=== PATIENT | male | born 1985 | race Caucasian/White ===

== ENCOUNTER 2017-03-12 13:03 | Emergency (ER) | payer OTHER ==
[2017-03-12 13:41] VITALS: BP 128/81
[2017-03-12] MEDS ORDERED: Proparacaine 0.5% Ophth Soln 15 ML Bottle EYERT ONE (14:02)
[2017-03-12] MEDS ORDERED: Proparacaine 0.5% Ophth Soln 15 ML Bottle ONE (14:07)
--- NOTE | 2017-03-12 14:27 | EDM.PDOC ---
ED HPI GENERAL MEDICAL PROBLEM - General Chief Complaint: Eye Problems Stated Complaint: CHEMICAL BURN, RIGHT EYE Time Seen by Provider: 03/12/17 14:05 Source of Information: Reports: Patient History Limitations: Reports: No Limitations - History of Present Illness INITIAL COMMENTS - FREE TEXT/NARRATIVE: 32-year-old male presents for evaluation and treatment of right eye irritation. Reports that he was at work last night. States that he opened a container of powdered dish detergent. Feels that he may have gotten some discharge in his eye and may have a chemical burn. He is also concerned that he may have inhaled some of the detergent as he felt slightly short of breath afterwards. This occurred around 1800 last night. He states that he rinsed the eye thoroughly. Currently complaining of redness and swelling to the right lower lid. No vision changes or crusting to the right eye. He does not wear glasses or contacts. No current shortness of breath or difficulty breathing currently. Right Eye Pain Score (Numeric/FACES): 3 - Related Data Allergies Allergy/AdvReac Type Severity Reaction Status Date / Time No Known Allergies Allergy Verified 03/12/17 13:29 Home Meds: Home Meds Methylphenidate [Ritalin] 5 mg PO DAILY 09/16/16 [History] buPROPion [buPROPion XL] 75 mg PO BID 09/16/16 [History] Cephalexin 500 mg PO BID #14 tablet 03/12/17 [Rx] Past Medical History - Past Health History Medical/Surgical History: Denies Medical/Surgical History Psychiatric History: Reports: Anxiety, Depression, Mood Swings Social & Family History - Tobacco Use Smoking Status *Q: Never Smoker Years of Tobacco use: 10 Packs/Tins Daily: 0.2 Second Hand Smoke Exposure: No - Caffeine Use Caffeine Use: Reports: Coffee - Recreational Drug Use Recreational Drug Use: No ED ROS GENERAL - Review of Systems Review Of Systems: See Below Constitutional: Denies: Fever, Chills HEENT: Reports: Eye Pain (right). Denies: Eye Discharge Respiratory: Denies: Shortness of Breath, Cough ED EXAM GENERAL W FULL EYE - Physical Exam Exam: See Below Exam Limited By: No Limitations General Appearance: Alert, WD/WN, No Apparent Distress Eyelids: Right: Erythema (approximately 0.5cm area of erythema with surrounding swelling to the right lower lid), Lid Everted for Exam Conjunctiva & Sclera: Bilateral: Normal Appearance Cornea Exam: Right: Normal Appearance, Examined with Flourescein Extraocular Movements: Bilateral: Intact Pupils: Normal Accommodation Pupillary Reaction: Bilateral: Brisk Anterior Chamber: Bilateral: Normal Appearance Ears: Normal External Exam Nose: Normal Inspection Throat/Mouth: Normal Inspection, Normal Lips, Normal Voice, No Airway Compromise Respiratory/Chest: No Respiratory Distress, Lungs Clear, Normal Breath Sounds Cardiovascular: Normal Peripheral Pulses, Regular Rate, Rhythm, No Murmur Neurological: Alert, Oriented, Normal Cognition Psychiatric: Normal Affect, Normal Mood Skin Exam: Warm, Dry, Normal Color Course - Vital Signs Last Recorded V/S: Last Vital Signs Temp 36.7 C 03/12/17 13:29 Pulse 70 03/12/17 13:29 Resp 12 03/12/17 13:29 BP 128/81 03/12/17 13:29 Pulse Ox 98 03/12/17 13:29 - Orders/Labs/Meds Meds: Medications Discontinued Medications Generic Name Dose Route Start Last Admin Trade Name Saleem PRN Reason Stop Dose Admin Proparacaine HCl 2 ml 03/12/17 14:02 03/12/17 14:19 Proparacaine 0.5% Ophth Soln EYERT 03/12/17 14:03 2 drop ONETIME ONE Administration Proparacaine HCl Confirm 03/12/17 14:07 03/12/17 14:20 Proparacaine 0.5% Ophth Soln Administered 03/12/17 14:08 Not Given Dose 15 ml .ROUTE .STK-MED ONE - Re-Assessments/Exams Free Text/Narrative Re-Assessment/Exam: 03/12/17 14:22 I was examined utilizing proparacaine and fluorescein. Patient tolerated the procedure well. No foreign material found. No corneal abrasions. Will start him on some antibiotics for an early preseptal cellulitis. Discharge instructions as documented. Departure - Departure Time of Disposition: 14:31 Disposition: Home, Self-Care 01 Condition: good Clinical Impression: Preseptal cellulitis of right lower eyelid - Discharge Information Prescriptions: Cephalexin 500 mg PO BID #14 tablet Instructions: Preseptal Cellulitis, Adult Referrals: Lona Tate DO [Primary Care Provider] - Forms: ED Department Discharge Additional Instructions: Cephalexin one tablet twice a day for 7 days. This has been escribed to the clinic pharmacy. Cold compress to the eye as needed. [id number] ibuprofen or Tylenol as needed for pain relief. Followup with family medicine if not better in 7 days. 2 return to BX her symptoms change or worsen.
== END 2017-03-12 14:55 | disposition home or self-care (01) ==
LOC: JD.ED 13:03
DX: L03.213 Periorbital cellulitis (principal); F41.8 Other specified anxiety disorders; Z79.899 Other long term (current) drug therapy
CPT/HCPCS: 65222; 99283; 99283-25

== ENCOUNTER 2021-04-25 19:08 | Observation (INO) | payer OTHER ==
--- NOTE | 2021-04-25 19:13 | EDM.PDOC ---
ED HPI GENERAL MEDICAL PROBLEM - General Chief Complaint: General Stated Complaint: [facility] Time Seen by Provider: 04/25/21 19:12 - History of Present Illness INITIAL COMMENTS - FREE TEXT/NARRATIVE: 36-year-old male presents the emergency room with essentially heat exhaustion. The patient walked 20 miles today after walking 12 miles last night today he had 2 L of fluid with him and he was unable to find more fluid along the way. He was becoming very lightheaded and very weak. He called for assistance. EMS picked him up he received 2 L of NS in route had 1/3 L hanging when he got here about 300 cc of that when I stopped it and changed it to LR. The patient feels as though he might be able to void and overall he feels much better since lightheadedness is gone. - Related Data Allergies Allergy/AdvReac Type Severity Reaction Status Date / Time No Known Allergies Allergy Verified 04/25/21 19:14 Home Meds: Home Meds buPROPion [buPROPion XL] 75 mg PO BID 09/16/16 [History] Past Medical History - Past Health History Medical/Surgical History: Denies Medical/Surgical History Psychiatric History: Reports: Anxiety, Depression, Mood Swings Social & Family History - Caffeine Use Caffeine Use: Reports: Coffee ED ROS GENERAL - Review of Systems Review Of Systems: See Below Constitutional: Reports: Malaise, Weakness. Denies: Fever, Chills HEENT: Reports: No Symptoms Respiratory: Reports: No Symptoms Cardiovascular: Reports: Lightheadedness. Denies: No Symptoms, Chest Pain, Claudication, Edema GI/Abdominal: Reports: No Symptoms : Reports: No Symptoms Musculoskeletal: Reports: Muscle Pain, Other (Cramps) Skin: Reports: No Symptoms Neurological: Reports: No Symptoms Psychiatric: Reports: No Symptoms ED EXAM, GENERAL - Physical Exam Exam: See Below Exam Limited By: No Limitations General Appearance: Alert, WD/WN, No Apparent Distress Ears: Normal External Exam, Normal Canal, Hearing Grossly Normal, Normal TMs Ear Exam: Bilateral Ear: Auricle Normal, Canal Normal, TM normal Nose: Normal Inspection, Normal Mucosa, No Blood Throat/Mouth: Normal Inspection, Normal Lips, Normal Teeth, Normal Gums, Normal Oropharynx, Normal Voice, No Airway Compromise Head: Atraumatic, Normocephalic Neck: Normal Inspection, Supple, Non-Tender, Full Range of Motion Respiratory/Chest: No Respiratory Distress, Lungs Clear, Normal Breath Sounds, No Accessory Muscle Use, Chest Non-Tender Cardiovascular: Normal Peripheral Pulses, Regular Rate, Rhythm, No Edema, No Gallop, No JVD, No Murmur, No Rub GI/Abdominal: Normal Bowel Sounds, Soft, Non-Tender, No Organomegaly, No Distention, No Abnormal Bruit, No Mass (Male) Exam: No Hernia, Normal Inspection, Normal Prostate, Circumcised Rectal (Males) Exam: Normal Exam, Normal Rectal Tone, Prostate Normal Back Exam: Normal Inspection, Full Range of Motion, NT Extremities: Normal Inspection, Normal Range of Motion, Non-Tender, Normal Capillary Refill, No Pedal Edema Neurological: Alert, Oriented, CN II-XII Intact, Normal Cognition, Normal Gait, Normal Reflexes, No Motor/Sensory Deficits Psychiatric: Normal Affect, Normal Mood Skin Exam: Warm, Dry, Intact, Normal Color, No Rash Lymphatic: No Adenopathy #1 Interpretation EKG Date: 04/25/21 Rhythm: NSR [place]: Normal P-Wave: Present QRS: Normal ST-T: Normal QT: Normal Comparison: NA - No Prior EKG EKG Interpretation Comments: Normal Course - Vital Signs Last Recorded V/S: Last Vital Signs Temp 36.4 C 04/25/21 19:11 Pulse 78 04/25/21 19:11 Resp 21 H 04/25/21 19:11 BP 150/86 H 04/25/21 19:11 Pulse Ox 97 04/25/21 19:11 - Orders/Labs/Meds Orders: Active Orders 24 hr Category Date Time Status EKG Documentation Completion [RC] ASDIRECTED Care 04/25/21 19:21 Active MYOGLOBIN, URINE Stat Lab 04/25/21 21:54 Ordered UA W/MICROSCOPIC [URIN] Stat Lab 04/25/21 21:35 Results Lactated Ringers [Ringers, Lactated] 1,000 ml Med 04/25/21 20:00 Active IV ASDIRECTED EKG 12 Lead [EK] Stat Ther 04/25/21 19:21 Ordered Medication Orders Lactated Ringer's (Ringers, Lactated) 1,000 mls @ 150 mls/hr IV ASDIRECTED JOELLE Labs: Laboratory Tests 06/29/21 06/29/21 06/29/21 Range/Units 19:15 19:15 21:01 WBC 12.20 H (4.23-9.07) K/mm3 RBC 5.12 (4.63-6.08) M/mm3 Hgb 15.9 (13.7-17.5) gm/dl Hct 46.2 (40.1-51.0) % MCV 90.2 (79.0-92.2) fl MCH 31.1 (25.7-32.2) pg MCHC 34.4 (32.2-35.5) g/dl RDW Std Deviation 43.9 (35.1-43.9) fL Plt Count 221 (163-337) K/mm3 MPV 11.9 (9.4-12.3) fl Neut % (Auto) 87.8 H (34.0-67.9) % Lymph % (Auto) 6.7 L (21.8-53.1) % [place] % (Auto) 5.2 L (5.3-12.2) % Eos % (Auto) 0.1 L (0.8-7.0) Baso % (Auto) 0.2 (0.1-1.2) % Neut # (Auto) 10.72 H (1.78-5.38) K/mm3 Lymph # (Auto) 0.82 L (1.32-3.57) K/mm3 [place] # (Auto) 0.63 (0.30-0.82) K/mm3 Eos # (Auto) 0.01 L (0.04-0.54) K/mm3 Baso # (Auto) 0.02 (0.01-0.08) K/mm3 Manual Slide Review Abnormal smear Sodium 152 H 145 (136-145) mEq/L Potassium 4.8 4.3 (3.5-5.1) mEq/L Chloride 113 H 109 H (98-107) mEq/L Carbon Dioxide 20 L 23 (21-32) mEq/L Anion Gap 23.8 H 17.3 H (5-15) BUN 36 H 33 H (7-18) mg/dL Creatinine 2.9 H 2.3 H (0.7-1.3) mg/dL Est Cr Clr Drug Dosing 33.74 42.54 mL/min Estimated GFR (MDRD) 25 32 (>60) mL/min BUN/Creatinine Ratio 12.4 L 14.3 (14-18) Glucose 103 H 136 H (70-99) mg/dL Calcium 9.8 9.2 (8.5-10.1) mg/dL Magnesium 2.4 (1.8-2.4) mg/dL Total Bilirubin 1.2 H (0.2-1.0) mg/dL AST 27 (15-37) U/L ALT 63 (16-63) U/L Alkaline Phosphatase 72 (46-116) U/L C-Reactive Protein 2.4 H* (<1.0) mg/dL Total Protein 8.4 H (6.4-8.2) g/dl Albumin 5.0 (3.4-5.0) g/dl Globulin 3.4 gm/dL Albumin/Globulin Ratio 1.5 (1-2) Urine Color (Yellow) Urine Appearance (Clear) Urine pH (5.0-8.0) Ur Specific [place] (1.005-1.030) Urine Protein (Negative) Urine Glucose (UA) (Negative) Urine Ketones (Negative) Urine Occult Blood (Negative) Urine Nitrite (Negative) Urine Bilirubin (Negative) Urine Urobilinogen (0.2-1.0) Ur Leukocyte Esterase (Negative) 04/25/21 Range/Units 21:35 WBC (4.23-9.07) K/mm3 RBC (4.63-6.08) M/mm3 Hgb (13.7-17.5) gm/dl Hct (40.1-51.0) % MCV (79.0-92.2) fl MCH (25.7-32.2) pg MCHC (32.2-35.5) g/dl RDW Std Deviation (35.1-43.9) fL Plt Count (163-337) K/mm3 MPV (9.4-12.3) fl Neut % (Auto) (34.0-67.9) % Lymph % (Auto) (21.8-53.1) % [place] % (Auto) (5.3-12.2) % Eos % (Auto) (0.8-7.0) Baso % (Auto) (0.1-1.2) % Neut # (Auto) (1.78-5.38) K/mm3 Lymph # (Auto) (1.32-3.57) K/mm3 [place] # (Auto) (0.30-0.82) K/mm3 Eos # (Auto) (0.04-0.54) K/mm3 Baso # (Auto) (0.01-0.08) K/mm3 Manual Slide Review Sodium (136-145) mEq/L Potassium (3.5-5.1) mEq/L Chloride (98-107) mEq/L Carbon Dioxide (21-32) mEq/L Anion Gap (5-15) BUN (7-18) mg/dL Creatinine (0.7-1.3) mg/dL Est Cr Clr Drug Dosing mL/min Estimated GFR (MDRD) (>60) mL/min BUN/Creatinine Ratio (14-18) Glucose (70-99) mg/dL Calcium (8.5-10.1) mg/dL Magnesium (1.8-2.4) mg/dL Total Bilirubin (0.2-1.0) mg/dL AST (15-37) U/L ALT (16-63) U/L Alkaline Phosphatase (46-116) U/L C-Reactive Protein (<1.0) mg/dL Total Protein (6.4-8.2) g/dl Albumin (3.4-5.0) g/dl Globulin gm/dL Albumin/Globulin Ratio (1-2) Urine Color Yellow (Yellow) Urine Appearance Slt cloudy H (Clear) Urine pH 6.0 (5.0-8.0) Ur Specific [place] > or = 1.030 (1.005-1.030) Urine Protein 1+ H (Negative) Urine Glucose (UA) Negative (Negative) Urine Ketones 1+ H (Negative) Urine Occult Blood Negative (Negative) Urine Nitrite Negative (Negative) Urine Bilirubin 1+ H (Negative) Urine Urobilinogen 0.2 (0.2-1.0) Ur Leukocyte Esterase Negative (Negative) Meds: Medications Generic Name Dose Route Start Last Admin Trade Name Freq PRN Reason Stop Dose Admin Lactated Ringer's 1,000 mls @ 150 mls/hr 04/25/21 20:00 Ringers, Lactated IV ASDIRECTED JOELLE Discontinued Medications Generic Name Dose Route Start Last Admin Trade Name Freq PRN Reason Stop Dose Admin Lactated Ringer's 1,000 mls @ 999 mls/hr 04/25/21 19:23 04/25/21 19:40 Ringers, Lactated IV 04/25/21 20:23 999 mls/hr ONETIME ONE Administration - Re-Assessments/Exams Free Text/Narrative Re-Assessment/Exam: 04/25/21 19:57 She has received 2 L of NS and is working on his third he is got out 300 cc in this bag and will change his over to LR. Labs reviewed electrolytes are elevated as is his anion gap and BUN will continue fluid rehydration. Patient thinks he could probably give us a urine specimen at this point. 04/25/21 21:58 Labs are improving but we still have a long way to go. Case reviewed with Dr. Beckham patient will be placed in observation. Departure - Departure Time of Disposition: 21:59 Disposition: Refer to Observation Clinical Impression: Heat exhaustion, Severe dehydration - Discharge Information Referrals: Dian Chavira MD [Primary Care Provider] - Forms: ED Department Discharge Sepsis Event Note (ED) - Focused Exam Vital Signs: Vital Signs Temp Pulse Resp BP Pulse Ox 04/25/21 19:11 36.4 C 78 21 H 150/86 H 97 - My Orders Last 24 Hours: My Active Orders 04/25/21 19:21 EKG Documentation Completion [RC] ASDIRECTED EKG 12 Lead [EK] Stat 04/25/21 20:00 Lactated Ringers [Ringers, Lactated] 1,000 ml IV ASDIRECTED 04/25/21 21:35 UA W/MICROSCOPIC [URIN] Stat 04/25/21 21:54 MYOGLOBIN, URINE Stat - Assessment/Plan Last 24 Hours: My Active Orders 04/25/21 19:21 EKG Documentation Completion [RC] ASDIRECTED EKG 12 Lead [EK] Stat 04/25/21 20:00 Lactated Ringers [Ringers, Lactated] 1,000 ml IV ASDIRECTED 04/25/21 21:35 UA W/MICROSCOPIC [URIN] Stat 04/25/21 21:54 MYOGLOBIN, URINE Stat
[2021-04-25] MEDS ORDERED: Lactated Ringers 1,000 ML IV ONE (19:23)
[2021-04-25] MEDS ORDERED: Melatonin 3 MG Tab PO ONE (22:22)
[2021-04-25] MEDS ORDERED: Gabapentin 600 MG Tab PO ONE (22:45)
[2021-04-25] MEDS: Lactated Ringers 1,000 ML IV SCH (22:51)
[2021-04-26] MEDS: Lactated Ringers 1,000 ML IV SCH (05:43)
--- NOTE | 2021-04-26 06:41 | PCM.HP.2 ---
H&P History of Present Illness - General Date of Service: 04/26/21 Admit Problem/Dx: Admission Diagnosis/Problem Admission Diagnosis/Problem Dehydration Source of Information: Patient History Limitations: Reports: No Limitations - History of Present Illness Initial Comments - Free Text/Narative: The patient is an otherwise healthy 36-year-old gentleman who had been admitted to acute hospitalization due to severe dehydration and acute renal insufficiency. The patient reportedly had been hiking and did not have sufficient water and became dizzy disoriented lightheaded and had presented to the emergency department with nausea and vomiting as well. The patient has denied any fever or chills. The patient is only taking medication for anxiety and depression. Reportedly the patient had walked 20+ miles hiking and again did not have sufficient water. The patient today has remarkably improved. His symptoms have resolved. He has no other complaints today. Onset of Symptoms: Reports: Sudden Duration of Symptoms: Reports: Day(s): Location: Reports: Generalized Severity: Moderate Improves with: Reports: Other (Fluid replacement) Worsens with: Reports: None Context: Reports: Activity/Exercise Associated Symptoms: Reports: Diaphoresis - Related Data Allergies/Adverse Reactions: Allergies Allergy/AdvReac Type Severity Reaction Status Date / Time No Known Allergies Allergy Verified 04/25/21 19:14 Home Medications: Home Meds buPROPion [buPROPion XL] 150 mg PO DAILY 09/16/16 [History] Gabapentin [Neurontin] 1 tab PO BEDTIME 04/25/21 [History] Past Medical History - Past Health History Medical/Surgical History: Denies Medical/Surgical History HEENT History: Reports: None Cardiovascular History: Reports: None Respiratory History: Reports: None Gastrointestinal History: Reports: None Genitourinary History: Reports: None Musculoskeletal History: Reports: None Neurological History: Reports: None Psychiatric History: Reports: Anxiety, Depression, Mood Swings Endocrine/Metabolic History: Reports: Diabetes, Type I Hematologic History: Reports: None Immunologic History: Reports: None Dermatologic History: Reports: None - Infectious Disease History Infectious Disease History: Reports: None Social & Family History - Family History Family Medical History: No Pertinent Family History - Tobacco Use Tobacco Use Status *Q: Former Tobacco User Years of Tobacco use: 3 Packs/Tins Daily: 1 Used Tobacco, but Quit: Yes Month/Year Tobacco Last Used: 12/2019 Second Hand Smoke Exposure: No - Caffeine Use Caffeine Use: Reports: None - Alcohol Use Alcohol Use History: No - Recreational Drug Use Recreational Drug Use: No - Living Situation & Occupation Living situation: Reports: Single Occupation: Employed H&P Review of Systems - Review of Systems: Review Of Systems: See Below General: Reports: Weakness HEENT: Reports: No Symptoms Pulmonary: Reports: No Symptoms Cardiovascular: Reports: No Symptoms Gastrointestinal: Reports: No Symptoms Genitourinary: Reports: No Symptoms Musculoskeletal: Reports: No Symptoms Skin: Reports: No Symptoms Psychiatric: Reports: No Symptoms Neurological: Reports: No Symptoms Hematologic/Lymphatic: Reports: No Symptoms Immunologic: Reports: No Symptoms Exam - Exam Exam: See Below - Vital Signs Vital Signs: Last Vital Signs Temp 36.4 C 04/25/21 23:05 Pulse 62 04/25/21 23:05 Resp 16 04/25/21 23:05 BP 133/70 04/25/21 23:05 Pulse Ox 95 04/25/21 23:05 Weight: 98.43 kg - Exam Quality Assessment: No: Supplemental Oxygen, DVT Prophylaxis General: Alert, Oriented, Cooperative, Mild Distress HEENT: Conjunctiva Clear, EACs Clear, EOMI, Hearing Intact, Mucosa Moist & [place], PERRLA Neck: Supple, Trachea Midline Lungs: Clear to Auscultation, Normal Respiratory Effort Cardiovascular: Regular Rate, Regular Rhythm GI/Abdominal Exam: Normal Bowel Sounds, Soft, Non-Tender, No Distention (Male) Exam: Deferred Rectal (Males) Exam: Deferred Back Exam: Normal Inspection, Full Range of Motion Extremities: Normal Inspection, Normal Range of Motion, No Pedal Edema Skin: Warm, Dry, Intact Neurological: Cranial Nerves Intact, Strength Equal Bilateral, Normal Gait, Normal Speech Neuro Extensive - Mental Status: Alert, Oriented x3, Memory Intact Neuro Extensive - Motor, Sensory, Reflexes: CN II-XII Intact, Normal Gait Psychiatric: Alert, Normal Affect, Normal Mood - Patient Data Lab Results Last 24 hrs: Laboratory Results - last 24 hr 04/25/21 04/25/21 04/25/21 Range/Units 19:15 19:15 21:01 WBC 12.20 H (4.23-9.07) K/mm3 RBC 5.12 (4.63-6.08) M/mm3 Hgb 15.9 (13.7-17.5) gm/dl Hct 46.2 (40.1-51.0) % MCV 90.2 (79.0-92.2) fl MCH 31.1 (25.7-32.2) pg MCHC 34.4 (32.2-35.5) g/dl RDW Std Deviation 43.9 (35.1-43.9) fL Plt Count 221 (163-337) K/mm3 MPV 11.9 (9.4-12.3) fl Neut % (Auto) 87.8 H (34.0-67.9) % Lymph % (Auto) 6.7 L (21.8-53.1) % [place] % (Auto) 5.2 L (5.3-12.2) % Eos % (Auto) 0.1 L (0.8-7.0) Baso % (Auto) 0.2 (0.1-1.2) % Neut # (Auto) 10.72 H (1.78-5.38) K/mm3 Lymph # (Auto) 0.82 L (1.32-3.57) K/mm3 [place] # (Auto) 0.63 (0.30-0.82) K/mm3 Eos # (Auto) 0.01 L (0.04-0.54) K/mm3 Baso # (Auto) 0.02 (0.01-0.08) K/mm3 Manual Slide Review Abnormal smear Sodium 152 H 145 (136-145) mEq/L Potassium 4.8 4.3 (3.5-5.1) mEq/L Chloride 113 H 109 H (98-107) mEq/L Carbon Dioxide 20 L 23 (21-32) mEq/L Anion Gap 23.8 H 17.3 H (5-15) BUN 36 H 33 H (7-18) mg/dL Creatinine 2.9 H 2.3 H (0.7-1.3) mg/dL Est Cr Clr Drug Dosing 33.74 42.54 mL/min Estimated GFR (MDRD) 25 32 (>60) mL/min BUN/Creatinine Ratio 12.4 L 14.3 (14-18) Glucose 103 H 136 H (70-99) mg/dL Calcium 9.8 9.2 (8.5-10.1) mg/dL Magnesium 2.4 (1.8-2.4) mg/dL Total Bilirubin 1.2 H (0.2-1.0) mg/dL AST 27 (15-37) U/L ALT 63 (16-63) U/L Alkaline Phosphatase 72 (46-116) U/L Creatine Kinase (39-308) U/L C-Reactive Protein 2.4 H* (<1.0) mg/dL Total Protein 8.4 H (6.4-8.2) g/dl Albumin 5.0 (3.4-5.0) g/dl Globulin 3.4 gm/dL Albumin/Globulin Ratio 1.5 (1-2) Urine Color (Yellow) Urine Appearance (Clear) Urine pH (5.0-8.0) Ur Specific [place] (1.005-1.030) Urine Protein (Negative) Urine Glucose (UA) (Negative) Urine Ketones (Negative) Urine Occult Blood (Negative) Urine Nitrite (Negative) Urine Bilirubin (Negative) Urine Urobilinogen (0.2-1.0) Ur Leukocyte Esterase (Negative) U Hyaline Cast (Auto) (0-5) /lpf Urine RBC (0-5) /hpf Urine WBC (0-5) /hpf Ur Epithelial Cells (0-5) /hpf Urine Bacteria (FEW) /hpf Waxy Casts (0-5) /lpf Urine Mucus (FEW) /hpf Ur Yeast w Hyphae (NOT SEEN) SARS-CoV-2 RNA (CHRISTOPHER) (NEGATIVE) 04/25/21 04/25/21 04/25/21 Range/Units 21:10 21:35 22:50 WBC (4.23-9.07) K/mm3 RBC (4.63-6.08) M/mm3 Hgb (13.7-17.5) gm/dl Hct (40.1-51.0) % MCV (79.0-92.2) fl MCH (25.7-32.2) pg MCHC (32.2-35.5) g/dl RDW Std Deviation (35.1-43.9) fL Plt Count (163-337) K/mm3 MPV (9.4-12.3) fl Neut % (Auto) (34.0-67.9) % Lymph % (Auto) (21.8-53.1) % [place] % (Auto) (5.3-12.2) % Eos % (Auto) (0.8-7.0) Baso % (Auto) (0.1-1.2) % Neut # (Auto) (1.78-5.38) K/mm3 Lymph # (Auto) (1.32-3.57) K/mm3 [place] # (Auto) (0.30-0.82) K/mm3 Eos # (Auto) (0.04-0.54) K/mm3 Baso # (Auto) (0.01-0.08) K/mm3 Manual Slide Review Sodium (136-145) mEq/L Potassium (3.5-5.1) mEq/L Chloride (98-107) mEq/L Carbon Dioxide (21-32) mEq/L Anion Gap (5-15) BUN (7-18) mg/dL Creatinine (0.7-1.3) mg/dL Est Cr Clr Drug Dosing mL/min Estimated GFR (MDRD) (>60) mL/min BUN/Creatinine Ratio (14-18) Glucose (70-99) mg/dL Calcium (8.5-10.1) mg/dL Magnesium (1.8-2.4) mg/dL Total Bilirubin (0.2-1.0) mg/dL AST (15-37) U/L ALT (16-63) U/L Alkaline Phosphatase (46-116) U/L Creatine Kinase 213 (39-308) U/L C-Reactive Protein (<1.0) mg/dL Total Protein (6.4-8.2) g/dl Albumin (3.4-5.0) g/dl Globulin gm/dL Albumin/Globulin Ratio (1-2) Urine Color Yellow (Yellow) Urine Appearance Slt cloudy H (Clear) Urine pH 6.0 (5.0-8.0) Ur Specific [place] > or = 1.030 (1.005-1.030) Urine Protein 1+ H (Negative) Urine Glucose (UA) Negative (Negative) Urine Ketones 1+ H (Negative) Urine Occult Blood Negative (Negative) Urine Nitrite Negative (Negative) Urine Bilirubin 1+ H (Negative) Urine Urobilinogen 0.2 (0.2-1.0) Ur Leukocyte Esterase Negative (Negative) U Hyaline Cast (Auto) 50-75 H (0-5) /lpf Urine RBC 0-5 (0-5) /hpf Urine WBC 5-10 H (0-5) /hpf Ur Epithelial Cells Not seen (0-5) /hpf Urine Bacteria Moderate H (FEW) /hpf Waxy Casts 0-5 (0-5) /lpf Urine Mucus Few (FEW) /hpf Ur Yeast w Hyphae Few H (NOT SEEN) SARS-CoV-2 RNA (CHRISTOPHER) Negative (NEGATIVE) Result Diagrams: 04/25/21 19:15 04/26/21 06:30 Sepsis Event Note - Evaluation Sepsis Screening Result: No Definite Risk - Focused Exam Vital Signs: Vital Signs Temp Temp Pulse Pulse Resp BP BP 04/25/21 23:05 36.4 C 62 16 133/70 04/25/21 22:30 68 20 04/25/21 21:30 80 26 H 129/73 04/25/21 21:15 79 27 H 127/71 04/25/21 20:45 65 26 H 94/40 L 04/25/21 19:11 36.4 C 78 21 H 150/86 H Pulse Ox 04/25/21 23:05 95 04/25/21 22:30 96 04/25/21 21:30 93 L 04/25/21 21:15 96 04/25/21 20:45 96 04/25/21 19:11 97 - Problem List (1) Heat exhaustion SNOMED Code(s): 73721687 ICD Code: T67.5XXA - HEAT EXHAUSTION, UNSPECIFIED, INITIAL ENCOUNTER Status: Acute Priority: High Current Visit: Yes Qualifiers: Encounter type: initial encounter Qualified Code(s): T67.5XXA - Heat exhaustion, unspecified, initial encounter (2) Severe dehydration SNOMED Code(s): 095432546 ICD Code: E86.0 - DEHYDRATION Status: Acute Priority: High Current Visit: Yes (3) Electrolyte abnormality SNOMED Code(s): 341944891 ICD Code: E87.8 - OTH DISORDERS OF ELECTROLYTE AND FLUID BALANCE, NEC Status: Acute Priority: High Current Visit: Yes (4) Acute kidney injury (nontraumatic) SNOMED Code(s): 164677806820107 ICD Code: N17.9 - ACUTE KIDNEY FAILURE, UNSPECIFIED Status: Acute Priority: High Current Visit: Yes Problem Details: Secondary to severe dehydration Problem List Initiated/Reviewed/Updated: Yes Orders Last 24hrs: Active Orders 24 hr Category Date Time Status Admission Status [Patient Status] [ADT] Routine ADT 04/25/21 22:15 Active Up ad Maritza [RC] BID Care 04/26/21 00:03 Active Regular Diet [DIET] Diet 04/26/21 Breakfast Active BASIC METABOLIC PANEL,BMP [CHEM] Routine Lab 04/26/21 05:00 Ordered MYOGLOBIN, URINE Stat Lab 04/25/21 21:35 Stop Req Lactated Ringers [Ringers, Lactated] 1,000 ml Med 04/25/21 20:00 Active IV ASDIRECTED Code Status [Resuscitation Status] Routine Resus Stat 04/26/21 00:02 Ordered EKG 12 Lead [EK] Stat Ther 04/25/21 19:21 Ordered Medication Orders Lactated Ringer's (Ringers, Lactated) 1,000 mls @ 150 mls/hr IV ASDIRECTED JOELLE Last Admin: 04/26/21 05:43 Dose: 150 mls/hr Documented by: Infusion: 04/26/21 05:32 Dose: 150 mls/hr Documented by: Admin: 04/25/21 22:51 Dose: 150 mls/hr Documented by: DIYA Assessment/Plan Comment:: The patient is an otherwise healthy 36-year-old gentleman who had been admitted to observation secondary to his heat exhaustion as well as his severe dehydration. The patient was aggressively fluid resuscitated overnight. Patient's symptoms have resolved. His renal insufficiency has normalized. The patient says that overall his symptoms have improved and he feels much better. The patient does feel weak. He has been encouraged to ambulate. The patient's diet will be regular as tolerated. The patient is also to have activity as tolerated. He will likely go home this afternoon. - Mortality Measure Prognosis:: Good
[2021-04-26 11:52] VITALS: BP 121/75; PULSE 63
--- NOTE | 2021-04-26 13:31 | PCM.DCSUM1 ---
Discharge Summary - Hospital Course HPI Initial Comments: The patient was admitted secondary to heat exhaustion and severe dehydration and was found to have acute renal insufficiency. Diagnosis: Stroke: No - Discharge Data Discharge Date: 04/26/21 Discharge Disposition: Home, Self-Care 01 Condition: Good - Referral to Home Health Primary Care Physician: Dian Chavira MD - Discharge Diagnosis/Problem(s) (1) Heat exhaustion SNOMED Code(s): 65359379 ICD Code: T67.5XXA - HEAT EXHAUSTION, UNSPECIFIED, INITIAL ENCOUNTER Status: Resolved Priority: High Current Visit: Yes Qualifiers: Encounter type: initial encounter Qualified Code(s): T67.5XXA - Heat exhaustion, unspecified, initial encounter (2) Severe dehydration SNOMED Code(s): 230903840 ICD Code: E86.0 - DEHYDRATION Status: Resolved Priority: High Current Visit: Yes (3) Electrolyte abnormality SNOMED Code(s): 617765687 ICD Code: E87.8 - OTH DISORDERS OF ELECTROLYTE AND FLUID BALANCE, NEC Status: Resolved Priority: High Current Visit: Yes (4) Acute kidney injury (nontraumatic) SNOMED Code(s): 268924719440649 ICD Code: N17.9 - ACUTE KIDNEY FAILURE, UNSPECIFIED Status: Resolved Priority: High Current Visit: Yes Problem Details: Secondary to severe dehydration - Patient Summary/Data Hospital Course: The patient is an otherwise healthy 36-year-old gentleman who had been admitted to acute hospitalization due to severe dehydration and acute renal insuffic iency. The patient had been reported to have been hiking 40 miles without sufficient water. E patient reportedly had been hiking and did not have sufficient water and became dizzy disoriented lightheaded and had presented to the emergency department with nausea and vomiting as well. The patient was admitted to observation and he was aggressively hydrated both in the emergency department and overnight with Ringer's lactate. The patient had tolerated the lactated Ringer's well and he improved quickly. The patient also had acute renal insufficiency due to hypovolemia and upon admission the patient's creatinine was at 2.9 mg/dL. By time of discharge the patient's creatinine had improved to 1.3 mg/dL. He was completely asymptomatic. His dizziness and lightheadedness had resolved. Further, there was no evidence of acute rhabdomyolysis. The patient has been recommended to continue with his appropriate diet as tolerated. He is also to have activity as tolerated. The patient will follow up with his primary care physician. The patient will continue on his home medications. No changes have been made. The patient also has been discharged from acute hospitalization with the recommendations listed above. - Patient Instructions Diet: Usual Diet as Tolerated Activity: As Tolerated - Discharge Plan *PRESCRIPTION DRUG MONITORING PROGRAM REVIEWED*: No *COPY OF PRESCRIPTION DRUG MONITORING REPORT IN PATIENT LEVI: No Home Medications: Home Meds buPROPion [buPROPion XL] 150 mg PO DAILY 09/16/16 [History] Gabapentin [Neurontin] 1 tab PO BEDTIME 04/25/21 [History] Oxygen Therapy Mode: Room Air Patient Handouts: Dehydration, Adult, [id number] Forms: ED Department Discharge Referrals: Dian Chavira MD [Primary Care Provider] - (call to schedule a follow up appointment in 7-10 days.) - Discharge Summary/Plan Comment DC Time >30 min.: Yes - General Info Date of Service: 04/26/21 Admission Dx/Problem (Free Text: The patient was admitted secondary to heat exhaustion and severe dehydration. The patient was also noted to have acute renal insufficiency due to the hypovolemia. Functional Status: Reports: Pain Controlled, Tolerating Diet - Review of Systems General: Reports: No Symptoms HEENT: Reports: No Symptoms Pulmonary: Reports: No Symptoms Cardiovascular: Reports: No Symptoms Gastrointestinal: Reports: No Symptoms Genitourinary: Reports: No Symptoms Musculoskeletal: Reports: No Symptoms Skin: Reports: No Symptoms Neurological: Reports: No Symptoms Psychiatric: Reports: No Symptoms - Patient Data Vitals - Most Recent: Last Vital Signs Temp 36.7 C 04/26/21 11:34 Pulse 63 04/26/21 11:34 Resp 17 04/26/21 11:34 BP 121/75 04/26/21 11:34 Pulse Ox 98 04/26/21 11:34 Weight - Most Recent: 99.836 kg I&O - Last 24 hours: Intake & Output 04/25/21 04/26/21 04/26/21 22:59 06:59 14:59 Intake Total 1007 Output Total 300 700 Balance -300 307 Lab Results - Last 24 hrs: Laboratory Results - last 24 hr 04/25/21 04/25/21 04/25/21 Range/Units 19:15 19:15 21:01 WBC 12.20 H (4.23-9.07) K/mm3 RBC 5.12 (4.63-6.08) M/mm3 Hgb 15.9 (13.7-17.5) gm/dl Hct 46.2 (40.1-51.0) % MCV 90.2 (79.0-92.2) fl MCH 31.1 (25.7-32.2) pg MCHC 34.4 (32.2-35.5) g/dl RDW Std Deviation 43.9 (35.1-43.9) fL Plt Count 221 (163-337) K/mm3 MPV 11.9 (9.4-12.3) fl Neut % (Auto) 87.8 H (34.0-67.9) % Lymph % (Auto) 6.7 L (21.8-53.1) % [place] % (Auto) 5.2 L (5.3-12.2) % Eos % (Auto) 0.1 L (0.8-7.0) Baso % (Auto) 0.2 (0.1-1.2) % Neut # (Auto) 10.72 H (1.78-5.38) K/mm3 Lymph # (Auto) 0.82 L (1.32-3.57) K/mm3 [place] # (Auto) 0.63 (0.30-0.82) K/mm3 Eos # (Auto) 0.01 L (0.04-0.54) K/mm3 Baso # (Auto) 0.02 (0.01-0.08) K/mm3 Manual Slide Review Abnormal smear Sodium 152 H 145 (136-145) mEq/L Potassium 4.8 4.3 (3.5-5.1) mEq/L Chloride 113 H 109 H (98-107) mEq/L Carbon Dioxide 20 L 23 (21-32) mEq/L Anion Gap 23.8 H 17.3 H (5-15) BUN 36 H 33 H (7-18) mg/dL Creatinine 2.9 H 2.3 H (0.7-1.3) mg/dL Est Cr Clr Drug Dosing 33.74 42.54 mL/min Estimated GFR (MDRD) 25 32 (>60) mL/min BUN/Creatinine Ratio 12.4 L 14.3 (14-18) Glucose 103 H 136 H (70-99) mg/dL Calcium 9.8 9.2 (8.5-10.1) mg/dL Magnesium 2.4 (1.8-2.4) mg/dL Total Bilirubin 1.2 H (0.2-1.0) mg/dL AST 27 (15-37) U/L ALT 63 (16-63) U/L Alkaline Phosphatase 72 (46-116) U/L Creatine Kinase (39-308) U/L C-Reactive Protein 2.4 H* (<1.0) mg/dL Total Protein 8.4 H (6.4-8.2) g/dl Albumin 5.0 (3.4-5.0) g/dl Globulin 3.4 gm/dL Albumin/Globulin Ratio 1.5 (1-2) Urine Color (Yellow) Urine Appearance (Clear) Urine pH (5.0-8.0) Ur Specific [place] (1.005-1.030) Urine Protein (Negative) Urine Glucose (UA) (Negative) Urine Ketones (Negative) Urine Occult Blood (Negative) Urine Nitrite (Negative) Urine Bilirubin (Negative) Urine Urobilinogen (0.2-1.0) Ur Leukocyte Esterase (Negative) U Hyaline Cast (Auto) (0-5) /lpf Urine RBC (0-5) /hpf Urine WBC (0-5) /hpf Ur Epithelial Cells (0-5) /hpf Urine Bacteria (FEW) /hpf Waxy Casts (0-5) /lpf Urine Mucus (FEW) /hpf Ur Yeast w Hyphae (NOT SEEN) SARS-CoV-2 RNA (CHRISTOPHER) (NEGATIVE) 04/25/21 04/25/21 04/25/21 Range/Units 21:10 21:35 22:50 WBC (4.23-9.07) K/mm3 RBC (4.63-6.08) M/mm3 Hgb (13.7-17.5) gm/dl Hct (40.1-51.0) % MCV (79.0-92.2) fl MCH (25.7-32.2) pg MCHC (32.2-35.5) g/dl RDW Std Deviation (35.1-43.9) fL Plt Count (163-337) K/mm3 MPV (9.4-12.3) fl Neut % (Auto) (34.0-67.9) % Lymph % (Auto) (21.8-53.1) % [place] % (Auto) (5.3-12.2) % Eos % (Auto) (0.8-7.0) Baso % (Auto) (0.1-1.2) % Neut # (Auto) (1.78-5.38) K/mm3 Lymph # (Auto) (1.32-3.57) K/mm3 [place] # (Auto) (0.30-0.82) K/mm3 Eos # (Auto) (0.04-0.54) K/mm3 Baso # (Auto) (0.01-0.08) K/mm3 Manual Slide Review Sodium (136-145) mEq/L Potassium (3.5-5.1) mEq/L Chloride (98-107) mEq/L Carbon Dioxide (21-32) mEq/L Anion Gap (5-15) BUN (7-18) mg/dL Creatinine (0.7-1.3) mg/dL Est Cr Clr Drug Dosing mL/min Estimated GFR (MDRD) (>60) mL/min BUN/Creatinine Ratio (14-18) Glucose (70-99) mg/dL Calcium (8.5-10.1) mg/dL Magnesium (1.8-2.4) mg/dL Total Bilirubin (0.2-1.0) mg/dL AST (15-37) U/L ALT (16-63) U/L Alkaline Phosphatase (46-116) U/L Creatine Kinase 213 (39-308) U/L C-Reactive Protein (<1.0) mg/dL Total Protein (6.4-8.2) g/dl Albumin (3.4-5.0) g/dl Globulin gm/dL Albumin/Globulin Ratio (1-2) Urine Color Yellow (Yellow) Urine Appearance Slt cloudy H (Clear) Urine pH 6.0 (5.0-8.0) Ur Specific [place] > or = 1.030 (1.005-1.030) Urine Protein 1+ H (Negative) Urine Glucose (UA) Negative (Negative) Urine Ketones 1+ H (Negative) Urine Occult Blood Negative (Negative) Urine Nitrite Negative (Negative) Urine Bilirubin 1+ H (Negative) Urine Urobilinogen 0.2 (0.2-1.0) Ur Leukocyte Esterase Negative (Negative) U Hyaline Cast (Auto) 50-75 H (0-5) /lpf Urine RBC 0-5 (0-5) /hpf Urine WBC 5-10 H (0-5) /hpf Ur Epithelial Cells Not seen (0-5) /hpf Urine Bacteria Moderate H (FEW) /hpf Waxy Casts 0-5 (0-5) /lpf Urine Mucus Few (FEW) /hpf Ur Yeast w Hyphae Few H (NOT SEEN) SARS-CoV-2 RNA (CHRISTOPHER) Negative (NEGATIVE) 04/26/21 Range/Units 06:30 WBC (4.23-9.07) K/mm3 RBC (4.63-6.08) M/mm3 Hgb (13.7-17.5) gm/dl Hct (40.1-51.0) % MCV (79.0-92.2) fl MCH (25.7-32.2) pg MCHC (32.2-35.5) g/dl RDW Std Deviation (35.1-43.9) fL Plt Count (163-337) K/mm3 MPV (9.4-12.3) fl Neut % (Auto) (34.0-67.9) % Lymph % (Auto) (21.8-53.1) % [place] % (Auto) (5.3-12.2) % Eos % (Auto) (0.8-7.0) Baso % (Auto) (0.1-1.2) % Neut # (Auto) (1.78-5.38) K/mm3 Lymph # (Auto) (1.32-3.57) K/mm3 [place] # (Auto) (0.30-0.82) K/mm3 Eos # (Auto) (0.04-0.54) K/mm3 Baso # (Auto) (0.01-0.08) K/mm3 Manual Slide Review Sodium 144 (136-145) mEq/L Potassium 3.9 (3.5-5.1) mEq/L Chloride 108 H (98-107) mEq/L Carbon Dioxide 23 (21-32) mEq/L Anion Gap 16.9 H (5-15) BUN 25 H (7-18) mg/dL Creatinine 1.3 (0.7-1.3) mg/dL Est Cr Clr Drug Dosing 75.27 mL/min Estimated GFR (MDRD) > 60 (>60) mL/min BUN/Creatinine Ratio 19.2 H (14-18) Glucose 99 (70-99) mg/dL Calcium 8.9 (8.5-10.1) mg/dL Magnesium (1.8-2.4) mg/dL Total Bilirubin (0.2-1.0) mg/dL AST (15-37) U/L ALT (16-63) U/L Alkaline Phosphatase (46-116) U/L Creatine Kinase (39-308) U/L C-Reactive Protein (<1.0) mg/dL Total Protein (6.4-8.2) g/dl Albumin (3.4-5.0) g/dl Globulin gm/dL Albumin/Globulin Ratio (1-2) Urine Color (Yellow) Urine Appearance (Clear) Urine pH (5.0-8.0) Ur Specific [place] (1.005-1.030) Urine Protein (Negative) Urine Glucose (UA) (Negative) Urine Ketones (Negative) Urine Occult Blood (Negative) Urine Nitrite (Negative) Urine Bilirubin (Negative) Urine Urobilinogen (0.2-1.0) Ur Leukocyte Esterase (Negative) U Hyaline Cast (Auto) (0-5) /lpf Urine RBC (0-5) /hpf Urine WBC (0-5) /hpf Ur Epithelial Cells (0-5) /hpf Urine Bacteria (FEW) /hpf Waxy Casts (0-5) /lpf Urine Mucus (FEW) /hpf Ur Yeast w Hyphae (NOT SEEN) SARS-CoV-2 RNA (CHRISTOPHER) (NEGATIVE) Med Orders - Current: Current Medications Lactated Ringer's (Ringers, Lactated) 1,000 mls @ 150 mls/hr IV ASDIRECTED [facility] Last Admin: 04/26/21 05:43 Dose: 150 mls/hr Documented by: Discontinued Medications Gabapentin (Gabapentin 600 Mg Tab) 600 mg PO ONETIME ONE Stop: 04/25/21 22:46 Last Admin: 04/25/21 22:52 Dose: 600 mg Documented by: Lactated Ringer's (Ringers, Lactated) 1,000 mls @ 999 mls/hr IV ONETIME ONE Stop: 04/25/21 20:23 Last Admin: 04/25/21 19:40 Dose: 999 mls/hr Documented by: Melatonin (Melatonin 3 Mg Tab) 6 mg PO ONETIME ONE Stop: 04/25/21 22:23 Last Admin: 04/25/21 22:51 Dose: 6 mg Documented by: - Exam Quality Assessment: Denies: Supplemental Oxygen, DVT Prophylaxis General: Reports: Alert, Oriented, Cooperative, No Acute Distress HEENT: Reports: Pupils Equal, Pupils Reactive, EOMI, Mucous Membr. Moist/[place]: Reports: Supple, Trachea Midline Lungs: Reports: Clear to Auscultation, Normal Respiratory Effort Cardiovascular: Reports: Regular Rate, Regular Rhythm GI/Abdominal Exam: Normal Bowel Sounds, Soft, Non-Tender, No Distention (Male) Exam: Deferred Rectal (Males) Exam: Deferred Back Exam: Reports: Normal Inspection, Full Range of Motion Extremities: Normal Inspection, Normal Range of Motion, No Pedal Edema Skin: Reports: Warm, Dry, Intact Neurological: Reports: No New Focal Deficit, Normal Gait, Normal Speech Psy/Mental Status: Reports: Alert, Normal Affect, Normal Mood
[2021-04-26] MEDS ORDERED: Gabapentin 600 MG Tab PO SCH (21:00)
[2021-04-26] MEDS ORDERED: Gabapentin 600 MG Tab PO ONE (22:30)
== END 2021-04-26 15:28 | disposition home or self-care (01) ==
LOC: JD.ED 19:08 → JD.MS 22:23
PROVIDERS: ADMIT Internal Medicine; ATTEND Internal Medicine
DX: T67.5XXA Heat exhaustion, unspecified, initial encounter (principal); E86.0 Dehydration; N17.9 Acute kidney failure, unspecified; E87.8 Other disorders of electrolyte and fluid balance, not elsewhere classified; E86.1 Hypovolemia; Z20.822 Contact with and (suspected) exposure to COVID-19; Z87.891 Personal history of nicotine dependence
CPT/HCPCS: 36415; 80048; 80053; 81001; 82550; 83735; 83874; 85025; 86140; 93005; 99285-25; A9270-GY; G0378; J7120; U0002

== ENCOUNTER 2021-09-22 19:12 | Emergency (ER) | payer SELFPAY ==
[2021-09-22 20:34] VITALS: BP 151/81; PULSE 111
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
== END 2021-09-22 20:44 ==
LOC: JD.ED 19:12
DX: R10.11 Right upper quadrant pain (principal); G89.29 Other chronic pain; F10.129 Alcohol abuse with intoxication, unspecified; E10.9 Type 1 diabetes mellitus without complications
CPT/HCPCS: 99284

== ENCOUNTER 2022-01-17 07:55 | Emergency (ER) | payer OTHER ==
[2022-01-17 08:16] VITALS: BP 142/89; PULSE 104
[2022-01-17] MEDS ORDERED: Morphine 4 MG/ML Syringe IM ONE (09:07)
== END 2022-01-17 09:55 | disposition home or self-care (01) ==
LOC: JD.ED 07:55
DX: S43.102A Unspecified dislocation of left acromioclavicular joint, initial encounter (principal); E10.9 Type 1 diabetes mellitus without complications; V29.9XXA Motorcycle rider (driver) (passenger) injured in unspecified traffic accident, initial encounter; Y93.55 Activity, bike riding
CPT/HCPCS: 73000; 96372; 99283; J2270; 29240

== ENCOUNTER 2022-03-05 09:39 | Emergency (ER) | payer OTHER ==
[2022-03-05] MEDS ORDERED: Ketorolac 15 MG/ML SDV IM ONE (13:57)
[2022-03-05 14:35] VITALS: BP 112/87; PULSE 66
== END 2022-03-05 14:35 | disposition home or self-care (01) ==
LOC: JD.ED 09:39
DX: R20.2 Paresthesia of skin (principal); M62.838 Other muscle spasm
CPT/HCPCS: 93005; 96372; 99284; J1885

== ENCOUNTER 2024-06-13 23:02 | Emergency (ER) | payer MEDICAID ==
[2024-06-13 23:33] VITALS: BP 142/81; PULSE 86
[2024-06-14] MEDS: Lidocaine 1% with EPINEPHrine 1:100,000 10 ML MDV INJECT ONE (01:01)
[2024-06-14] MEDS: Lidocaine 1% with EPINEPHrine 1:100,000 20 ML MDV ONE (01:33)
[2024-06-14] MEDS: Lidocaine 1% with EPINEPHrine 1:100,000 20 ML MDV INJECT ONE (01:34)
== END 2024-06-14 03:17 | disposition home or self-care (01) ==
LOC: JD.ED 23:02
DX: S61.412A Laceration without foreign body of left hand, initial encounter (principal); S51.812A Laceration without foreign body of left forearm, initial encounter; E10.9 Type 1 diabetes mellitus without complications; Z86.16 Personal history of COVID-19; V18.2XXA Unspecified pedal cyclist injured in noncollision transport accident in nontraffic accident, initial encounter
CPT/HCPCS: 12002; 99283; 99284; J3490

== ENCOUNTER 2024-08-10 17:29 | Emergency (ER) | payer MEDICAID ==
[2024-08-10] MEDS: diphenhydrAMINE 50 MG/ML SDV IVPUSH ONE (17:38)
[2024-08-10] MEDS: LORazepam 2 MG/ML SDV IVPUSH ONE (17:40)
[2024-08-10] MEDS: Haloperidol Lactate 5 MG/ML SDV IVPUSH ONE (17:42)
[2024-08-10] MEDS ORDERED: Sodium Chloride 0.9% 10 ML Syringe FLUSH PRN (17:43)
[2024-08-10] MEDS: Sodium Chloride 0.9% 1,000 ML IV ONE ×2 (17:48→20:29)
[2024-08-10 17:51] LABS: BASOPHILS ABSOLUTE AUTO 0.1 K/mm3 (0.0-0.2); BASOPHILS PERCENT AUTO 0.7 % (0.0-1.0); EOSINOPHILS PERCENT AUTO 0.1 % (0.0-6.0); HEMATOCRIT 48.9 % (42.0-52.0); HEMOGLOBIN 16.6 gm/dl (14.0-18.0); IMMATURE GRAN ABSOLUTE AUTO 0.09 K/mm3 (0.00-0.05); IMMATURE GRAN PERCENT AUTO 0.8 % (0.0-0.4); LYMPHOCYTES ABSOLUTE AUTO 1.7 K/mm3 (1.0-4.8); LYMPHOCYTES PERCENT AUTO 15.7 % (24.0-44.0); MEAN CORPUSCULAR HEMOGLOBIN 30.9 pg (28.0-32.0); MEAN CORPUSCULAR HGB CONC 33.9 g/dl (32.0-36.0); MEAN CORPUSCULAR VOLUME 91.1 fl (83.0-99.0); MEAN PLATELET VOLUME 10.9 fl (9.4-12.4); MONOCYTES ABSOLUTE AUTO 0.3 K/mm3 (0.0-0.8); MONOCYTES PERCENT AUTO 3.1 % (0.0-8.0); NEUTROPHILS ABSOLUTE AUTO 8.6 K/mm3 (1.8-7.7); NEUTROPHILS PERCENT AUTO 79.6 % (41.0-71.0); PLATELET COUNT,PLT 327 K/mm3 (150-400); RED BLOOD CELL COUNT 5.37 M/mm3 (4.52-5.90); WHITE BLOOD CELL COUNT,WBC 10.86 K/mm3 (3.9-11.3)
[2024-08-10] MEDS: Sodium Chloride 0.9% 10 ML Syringe FLUSH ONE (18:00)
[2024-08-10] MEDS: Iopamidol 755 Mg/ML 100 ML Bottle IVPUSH ONE (18:01)
[2024-08-10 18:15] LABS: A/G RATIO 1.6 (1-2); ALANINE AMINOTRANSFERASE,ALT 59 U/L (16-63); ALBUMIN 4.9 g/dl (3.4-5.0); ALKALINE PHOSPHATASE 80 U/L (46-116); ANION GAP 26.7 (5-15); ASPARTATE AMNIOTRANSFERASE,AST 61 U/L (15-37); BILIRUBIN TOTAL 0.7 mg/dL (0.2-1.0); BLOOD UREA NITROGEN,BUN 20 mg/dL (7-18); BUN/CREATININE RATIO 14.3 (14-18); CALCIUM 9.4 mg/dL (8.5-10.1); CARBON DIOXIDE,CO2 17 mEq/L (21-32); CHLORIDE,CL 101 mEq/L (98-107); CREATINE KINASE,CK 158 U/L (39-308); CREATININE 1.4 mg/dL (0.7-1.3); ESTIMATED GFR 65 mL/min (>60); ETHANOL BLOOD MEDICAL 0.32 gm% (0.00); GLUCOSE RANDOM 71 mg/dL (70-99); LIPASE 25 U/L (16-77); POTASSIUM,K 3.7 mEq/L (3.5-5.1); SODIUM,NA 141 mEq/L (136-145)
[2024-08-10 18:16] LABS: ACETAMINOPHEN 0 ug/mL (10-30)
[2024-08-10 20:57] LABS: BLOOD UREA NITROGEN,BUN 19 mg/dL (7-18); BUN/CREATININE RATIO 17.3 (14-18); CALCIUM 8.4 mg/dL (8.5-10.1); CARBON DIOXIDE,CO2 21 mEq/L (21-32); CHLORIDE,CL 104 mEq/L (98-107); CREATININE 1.1 mg/dL (0.7-1.3); ESTIMATED GFR 87 mL/min (>60); GLUCOSE RANDOM 70 mg/dL (70-99); SODIUM,NA 140 mEq/L (136-145)
[2024-08-10] MEDS: Lactated Ringers 1,000 ML IV ONE (23:01)
[2024-08-10 23:19] LABS: ANION GAP 20.1 (5-15); BLOOD UREA NITROGEN,BUN 18 mg/dL (7-18); CALCIUM 8.3 mg/dL (8.5-10.1); CARBON DIOXIDE,CO2 21 mEq/L (21-32); CHLORIDE,CL 105 mEq/L (98-107); ESTIMATED GFR 98 mL/min (>60); GLUCOSE RANDOM 68 mg/dL (70-99); POTASSIUM,K 4.1 mEq/L (3.5-5.1); SODIUM,NA 142 mEq/L (136-145)
[2024-08-11] MEDS ORDERED: Sodium Chloride 0.9% 1,000 ML IV SCH (01:15)
[2024-08-11] MEDS: Sodium Chloride 0.9% 1,000 ML IV ONE (02:10)
[2024-08-11 05:57] VITALS: PULSE 84
[2024-08-11 08:44] VITALS: BP 116/70
== END 2024-08-11 08:25 | disposition home or self-care (01) ==
LOC: JD.ED 17:29
DX: S01.311A Laceration without foreign body of right ear, initial encounter (principal); S01.111A Laceration without foreign body of right eyelid and periocular area, initial encounter; S01.01XA Laceration without foreign body of scalp, initial encounter; S80.212A Abrasion, left knee, initial encounter; S80.211A Abrasion, right knee, initial encounter; S60.512A Abrasion of left hand, initial encounter; S60.511A Abrasion of right hand, initial encounter; E86.0 Dehydration; E10.9 Type 1 diabetes mellitus without complications; Z79.899 Other long term (current) drug therapy; Z86.16 Personal history of COVID-19; Y04.8XXA Assault by other bodily force, initial encounter
CPT/HCPCS: 12001; 12013; 36415; 70450; 71260; 72125; 73562; 74177; 80048; 80053; 80143; 80179; 80307; 82550; 83605; 83690; 83735; 85025; 96361; 96374; 96375; 99284; J1200; J1630; J2060; J3490; J7030; J7120; Q9967

== ENCOUNTER 2024-12-21 13:20 | Emergency (ER) | payer MEDICAID ==
[2024-12-21 13:49] VITALS: BP 163/103; PULSE 93
[2024-12-21] MEDS ORDERED: Naloxone 0.4 MG/ML SDV IVPUSH PRN (13:56)
[2024-12-21] MEDS: HYDROmorphone 0.5 MG/0.5 ML Syringe IVPUSH ONE (14:03)
[2024-12-21 14:30] LABS: BARBITURATE SCREEN,URINE NEGATIVE (CUTOFF=200); BENZODIAZEPINES SCREEN,URINE PRESUMPTIVE POSITIVE (CUTOFF=150); BUPRENORPHINE SCREEN,URINE NEGATIVE (CUTOFF=10); METHADONE SCREEN, URINE NEGATIVE (CUT0FF=200); METHAMPHETAMINES SCREEN, URINE NEGATIVE (CUTOFF=500); OXYCODONE SCREEN,URINE PRESUMPTIVE POSITIVE (CUT0FF=100); THC SCREEN,URINE 20 NG/ML NEGATIVE (CUTOFF=50)
[2024-12-21 14:34] LABS: AMPHETAMINES SCREEN, URINE PRESUMPTIVE POSITIVE (CUTOFF=500)
== END 2024-12-21 16:26 | disposition home or self-care (01) ==
LOC: JD.ED 13:20
DX: S92.424A Nondisplaced fracture of distal phalanx of right great toe, initial encounter for closed fracture (principal); E10.9 Type 1 diabetes mellitus without complications; Z86.16 Personal history of COVID-19; Z79.899 Other long term (current) drug therapy; W23.1XXA Caught, crushed, jammed, or pinched between stationary objects, initial encounter
CPT/HCPCS: 12001; 36415; 73590-26-RT; 73590-RT; 73610-26-RT; 73610-RT; 73630-26-RT; 73630-RT; 80306; 80307; 96374; 99283-25